=== PATIENT | male | born 1990 | race Caucasian/White ===

== ENCOUNTER 2017-12-21 17:10 | Emergency (ER) | payer OTHER | END 2017-12-21 19:42 | disposition home or self-care (01) | LOC: E/R 17:10 | DX: S69.92XA Unspecified injury of left wrist, hand and finger(s), initial encounter (principal); W22.8XXA Striking against or struck by other objects, initial encounter; Y92.830 Public park as the place of occurrence of the external cause | CPT/HCPCS: 73130; 73130-LT; 99283-25 ==

== ENCOUNTER 2018-01-01 08:13 | Emergency (ER) | payer OTHER ==
[2018-01-01] MEDS: LORAZEPAM 1 MG TAB PO (08:25)
[2018-01-01] MEDS: LEVETIRACETAM 750 MG TAB PO (08:25)
== END 2018-01-01 10:00 | disposition home or self-care (01) ==
LOC: E/R 08:13
DX: G40.909 Epilepsy, unspecified, not intractable, without status epilepticus (principal); R40.2142 Coma scale, eyes open, spontaneous, at arrival to emergency department; R40.2362 Coma scale, best motor response, obeys commands, at arrival to emergency department; R40.2252 Coma scale, best verbal response, oriented, at arrival to emergency department
CPT/HCPCS: 99283; Z7502

== ENCOUNTER 2018-01-07 07:58 | Emergency (ER) | payer OTHER ==
[2018-01-07] MEDS: LEVETIRACETAM 750 MG TAB PO (08:22)
== END 2018-01-07 09:29 | disposition home or self-care (01) ==
LOC: E/R 07:58
DX: G40.909 Epilepsy, unspecified, not intractable, without status epilepticus (principal); T42.2X6A Underdosing of succinimides and oxazolidinediones, initial encounter; R40.2142 Coma scale, eyes open, spontaneous, at arrival to emergency department; R40.2252 Coma scale, best verbal response, oriented, at arrival to emergency department; R40.2362 Coma scale, best motor response, obeys commands, at arrival to emergency department; Z91.128 Patient's intentional underdosing of medication regimen for other reason
CPT/HCPCS: 99283; Z7502

== ENCOUNTER 2018-09-14 16:38 | Emergency (ER) | payer OTHER ==
[2018-09-14 17:03] LABS: ADD MAN DIFF? NO
[2018-09-14] MEDS: SOD CHLORIDE 0.9% 1,000 ML IV (17:07)
[2018-09-14 17:08] LABS: BASOPHIL # 0.1 10^3/ul (0.0-0.1); BASOPHILS % 0.7 % (0.0-2.0); EOSINOPHILS # 0.1 10^3/ul (0.0-0.5); EOSINOPHILS % 0.9 % (0.0-7.0); HEMOGLOBIN 15.7 g/dl (14.0-18.0); LYMPHOCYTES # 2.5 10^3/ul (0.8-2.9); MEAN CORPUSCULAR HEMOGLOBIN 32.6 pg (29.0-33.0); MEAN CORPUSCULAR HGB CONC 36.5 g/dl (32.0-37.0); MEAN CORPUSCULAR VOLUME 89.4 fl (82.0-101.0); MEAN PLATELET VOLUME 12.2 fl (7.4-10.4); MONOCYTE # 0.5 10^3/ul (0.3-0.9); MONOCYTES % 7.8 % (0.0-11.0); NEUTROPHIL # 3.6 10^3/ul (1.6-7.5); NEUTROPHILS % 53.3 % (39.0-77.0); NUCLEATED RED BLOOD CELLS% 0.6 /100WBC (0.0-0.0); PLATELET COUNT 167 10^3/UL (140-415); RED BLOOD COUNT 4.81 10^6/ul (4.70-6.10); RED CELL DISTRIBUTION WIDTH 14.6 % (11.5-14.5)
[2018-09-14 17:08] LABS: WHITE BLOOD COUNT 6.8 10^3/ul (4.8-10.8)
[2018-09-14] MEDS: LEVETIRACETAM 1000 MG (PMX) 100 ML IVPB (17:12)
[2018-09-14 17:24] LABS: ALANINE AMINOTRANSFERASE 30 IU/L (13-69); ALBUMIN 3.9 g/dl (3.3-4.9); ALBUMIN/GLOBULIN RATIO 1.69; ALKALINE PHOSPHATASE 55 IU/L (42-121); ANION GAP 16 (5-13); ASPARTATE AMINO TRANSFERASE 29 IU/L (15-46); BILIRUBIN,INDIRECT 0.3 mg/dl (0-1.1); BILIRUBIN,TOTAL 0.3 mg/dl (0.2-1.3); BLOOD UREA NITROGEN 14 mg/dl (7-20); CALCIUM 7.7 mg/dl (8.4-10.2); CARBON DIOXIDE 20 mmol/L (21-31); CHLORIDE 107 mmol/L (97-110); CREATININE 0.76 mg/dl (0.61-1.24); Estimated GFR > 60 mL/min (>60); GLUCOSE 75 mg/dl (70-220); LIPASE 169 U/L (23-300); POTASSIUM 3.9 mmol/L (3.5-5.1); SODIUM 143 mmol/L (135-144); TOTAL PROTEIN 6.2 g/dl (6.1-8.1)
== END 2018-09-14 18:06 | disposition home or self-care (01) ==
LOC: E/R 18:06
DX: G40.909 Epilepsy, unspecified, not intractable, without status epilepticus (principal)
CPT/HCPCS: 36415; 80053; 83690; 85025; 96374; 99284-25

== ENCOUNTER 2019-01-24 17:46 | Emergency (ER) | payer SELFPAY, OTHER | END 2019-01-24 19:36 | disposition left against medical advice (07) | LOC: E/R 17:46 | DX: Z53.21 Procedure and treatment not carried out due to patient leaving prior to being seen by health care provider (principal) ==